=== PATIENT | male | born 1985 | race Caucasian/White ===

== ENCOUNTER 2022-03-13 15:14 | Emergency (ER) | payer SELFPAY | END 2022-03-13 15:23 | disposition left against medical advice (07) | LOC: ERS 15:14 | DX: Z53.21 Procedure and treatment not carried out due to patient leaving prior to being seen by health care provider (principal) ==

== ENCOUNTER 2022-10-17 02:56 | Emergency (ER) | payer OTHER, MEDICARE ==
[2022-10-17] MEDS ORDERED: Ondansetron ODT 4 MG TAB ONE (05:41)
[2022-10-17] MEDS ORDERED: Bacitracin 1 PK ONE (05:41)
[2022-10-17] MEDS ORDERED: Acetaminophen 500 MG TAB ONE (05:41)
== END 2022-10-17 06:27 | disposition home or self-care (01) ==
LOC: ERS 02:56
DX: S02.412A LeFort II fracture, initial encounter for closed fracture (principal); S02.31XA Fracture of orbital floor, right side, initial encounter for closed fracture; F17.210 Nicotine dependence, cigarettes, uncomplicated; Y08.89XA Assault by other specified means, initial encounter
CPT/HCPCS: 70450; 70486; Q0162

== ENCOUNTER 2023-10-16 16:34 | Emergency (ER) | payer OTHER | END 2023-10-16 17:09 | disposition home or self-care (01) | LOC: ERS 16:34 | DX: F10.129 Alcohol abuse with intoxication, unspecified (principal); F17.210 Nicotine dependence, cigarettes, uncomplicated | CPT/HCPCS: 99284 ==